=== PATIENT | male | born 2005 | race Caucasian/White ===

== ENCOUNTER 2024-07-27 18:40 | Emergency (ER) | payer SELFPAY ==
[2024-07-27] MEDS ORDERED: Dexamethasone 10 MG/ML VIAL ONE (18:56)
[2024-07-27] MEDS ORDERED: predniSONE 20 MG TAB ONE (18:56)
[2024-07-27] MEDS ORDERED: Ondansetron PF 4 MG/2 ML Vial ONE (18:56)
[2024-07-27] MEDS ORDERED: diphenhydrAMINE 50 MG/ML VIAL ONE (18:56)
[2024-07-27] MEDS ORDERED: EPINEPHrine 1 MG/ML VIAL ONE (19:02)
[2024-07-27] MEDS ORDERED: Ipratropium/Albuterol 3 ML NEB ONE (19:46)
== END 2024-07-27 20:12 | disposition home or self-care (01) ==
LOC: ERS 18:40
DX: T78.05XA Anaphylactic reaction due to tree nuts and seeds, initial encounter (principal); R11.0 Nausea
CPT/HCPCS: 96374; 96375; J0171; J1100; J1200; J2405; J7512; J7620